=== PATIENT | female | born 1930 | race Caucasian/White ===

== ENCOUNTER 2017-03-29 23:01 | Emergency (ER) | payer MEDICARE, BC, OTHER ==
[~2017-03-29] VITALS: Ht 160 cm; Wt 56.0 kg
[2017-03-29 23:20] VITALS: BP 133/71; PULSE 90; RESP 22; TEMP 98; O2SAT 92
[2017-03-29] MEDS ORDERED: LEVA250T14 PO (23:20)
[2017-03-29] MEDS ORDERED: MULTTAB67 PO (23:20)
[2017-03-29] MEDS ORDERED: MUCI30TA2 PO (23:20)
[2017-03-29] MEDS ORDERED: CALC1TAB42 PO (23:20)
[2017-03-29] MEDS ORDERED: FLUT1SPR5 EACH NARE (23:20)
[2017-03-29] MEDS ORDERED: MEMA1TAB PO (23:20)
[2017-03-29] MEDS ORDERED: ARIC10TA2 PO (23:20)
--- NOTE | 2017-03-29 23:26 | PD ---
HPI Chief Complaint: Fall Time Seen by Provider: 23:06 Travel History International Travel<30 days: No Contact w/Intl Traveler<30days: No Traveled to known affect area: No History of Present Illness HPI PATIENT WAS S/P [facility] PER [place] REPORT, EMS CALLED FOR EVAL, PRIOR TO TRANSFER [place] VITALS SHOWED LOW GRADE FEVER 100.3 AND A RECENT H/O RUNNY NOSE AND COUGH PFSH Past Medical History Alzheimer's Disease: Yes Arthritis: Yes (osteo) Anxiety: Yes Tetanus Vaccination: Unknown : 2 Para: 1 Miscarriage: 1 Past Surgical History Hysterectomy: Yes Social History Alcohol Use: No Tobacco Use: No Substance Use: No Allergies-Medications (Allergen,Severity, Reaction): Coded Allergies: aspirin (Verified Allergy, Unknown, 03/29/17) meperidine (Verified Allergy, Unknown, 03/29/17) penicillin G (Verified Allergy, Unknown, 03/29/17) tetracycline (Verified Allergy, Unknown, 03/29/17) Reported Meds & Prescriptions Reported Meds & Active Scripts Active Reported Aricept (Donepezil HCl) 10 Mg Tablet 10 Mg PO HS Levaquin (Levofloxacin) 250 Mg Tablet 250 Mg PO DAILY Flonase Nasal [place] (Fluticasone Nasal [place]) 50 Mcg/Act [place] 50 Mcg EACH NARE BID Calcium 500+D (Calcium Carbonate-Cholecalciferol) 500-200 Mg-Unit Tab 1 Tab PO BID Mucinex DM (Dextromethorphan-Guaifenesin) 30-600 Mg Tab 1 Tab PO BID PRN Memantine 5 Mg Tab 5 Mg PO DAILY Multiple Vitamin 1 Tab 1 Tab PO DAILY Review of Systems ROS Limitations: Poor Historian Except as stated in HPI: all other systems reviewed are Neg Skin: Positive Other (CUT TO SKIN ON FACE) Physical Exam Exam Limitations: Poor Historian Narrative GENERAL: SKIN: Warm and dry. 3CM LACERATION TO LEFT SABIANIST AREA, NO PULSATILE BLEEDING, NOCREPTUS HEAD: Atraumatic. Normocephalic. EYES: Pupils equal and round. No scleral icterus. No injection or drainage. ENT: No nasal bleeding or discharge. Mucous membranes pink and moist. NO HEMOTYMPANUM NECK: Trachea midline. No JVD. "ALL OF IT HURTS" HOWEVER DID NOT APPEAR TO WINCE WHEN PALPATING DOWN MIDLINE OF ENTIRE BACK CARDIOVASCULAR: Regular rate and rhythm. RESPIRATORY: No accessory muscle use. Clear to auscultation. Breath sounds equal bilaterally. GASTROINTESTINAL: Abdomen soft, non-tender, nondistended. Hepatic and splenic margins not palpable. MUSCULOSKELETAL: Extremities without clubbing, cyanosis, or edema. No obvious deformities. NEUROLOGICAL: Awake and alert BUT SOMEWHAT FORGETFUL. No obvious cranial nerve deficits. Motor grossly within normal limits. Five out of 5 muscle strength in the arms and legs. Normal speech. PSYCHIATRIC: Appropriate mood and affect; insight and judgment normal. Data Data Last Documented VS Vital Signs Date Time Temp Pulse Resp B/P Pulse Ox O2 Delivery O2 Flow Rate FiO2 03/30/17 02:07 93 16 138/65 98 Nasal Cannula 2 03/29/17 23:20 98.0 Orders Ammonia (03/29/17 23:17) Complete Blood Count With Diff (03/29/17 23:17) Comprehensive Metabolic Panel (03/29/17 23:17) Prothrombin Time / Inr (Pt) (03/29/17 23:17) Act Partial Throm Time (Ptt) (03/29/17 23:17) Troponin I (03/29/17 23:17) Urinalysis - C+S If Indicated (03/29/17 23:17) Lactic Acid Sepsis Protocol (03/29/17 23:17) Chest, Single Ap (03/29/17 23:17) Ct Brain W/O Iv Contrast(Rout) (03/29/17 23:17) Ecg Monitoring (03/29/17 23:17) Iv Access Insert/Monitor (03/29/17 23:17) Spine, Cervical Compl([id number]) (03/29/17 ) Spine, Lumbar Comp W/Obliq (03/29/17 ) Spine, Thoracic-Ap/Lat/Sw(3vw) (03/29/17 ) Influenzae A/B Antigen (03/29/17 23:26) Levofloxacin 500 Mg Premix Inj (Levaquin (03/30/17 01:15) Lorazepam Inj (Ativan Inj) (03/30/17 01:30) Labs Laboratory Tests Test 03/29/17 03/29/17 23:20 23:22 White Blood Count 8.6 TH/MM3 Red Blood Count 4.41 MIL/MM3 Hemoglobin 12.7 GM/DL Hematocrit 38.2 % Mean Corpuscular Volume 86.6 FL Mean Corpuscular Hemoglobin 28.9 PG Mean Corpuscular Hemoglobin 33.4 % Concent Red Cell Distribution Width 13.7 % Platelet Count 282 TH/MM3 Mean Platelet Volume 7.9 FL Neutrophils (%) (Auto) 81.7 % Lymphocytes (%) (Auto) 11.0 % Monocytes (%) (Auto) 6.8 % Eosinophils (%) (Auto) 0.2 % Basophils (%) (Auto) 0.3 % Neutrophils # (Auto) 7.0 TH/MM3 Lymphocytes # (Auto) 0.9 TH/MM3 Monocytes # (Auto) 0.6 TH/MM3 Eosinophils # (Auto) 0.0 TH/MM3 Basophils # (Auto) 0.0 TH/MM3 CBC Comment DIFF FINAL Differential Comment Prothrombin Time 10.2 SEC Prothromb Time International 0.9 RATIO Ratio Activated Partial 26.8 SEC Thromboplast Time Sodium Level 140 MEQ/L Potassium Level 3.8 MEQ/L Chloride Level 106 MEQ/L Carbon Dioxide Level 29.1 MEQ/L Anion Gap 5 MEQ/L Blood Urea Nitrogen 20 MG/DL Creatinine 0.79 MG/DL Estimat Glomerular Filtration 69 ML/MIN Rate Random Glucose 109 MG/DL Calcium Level 9.1 MG/DL Total Bilirubin 0.7 MG/DL Aspartate Amino Transf 16 U/L (AST/SGOT) Alanine Aminotransferase 16 U/L (ALT/SGPT) Alkaline Phosphatase 93 U/L Troponin I LESS THAN 0.02 NG/ML Total Protein 7.1 GM/DL Albumin 3.3 GM/DL Lactic Acid Level 0.9 mmol/L Ammonia 15 MCMOL/L MDM Medical Decision Making Medical Screen Exam Complete: Yes Emergency Medical Condition: Yes Medical Record Reviewed: Yes Differential Diagnosis ICH V SEPSIS V ANEMIA V DEHYDRATION V BACK (FX, DISLOCATION, SUBLUXATION) Narrative Course THUS FAR CT HEAD SHOWED NO SKULL FX NOR ANY ICH. XRAY OF SPINE DID NOT SHOW ACUTE DISLOCATION/FX/SUBLUXATION. CURRENTLY NEG FLU, NO ELEV WBC, NO ANEMIA, NO E/O DEHYDRATION. ONLY MILD NEUTROPHILIA NOTED. NL LACTIC ACID Procedures Procedure Narrative LACERATION LOCATION: [LEFT SABIANIST REGION-] LENGTH: [3CM] NUMBER OF STITCHES/LORRAINE: [ZERO/DERMABOND] REPAIR: The area of the laceration was prepped with Betadine and sterilely draped. The laceration was infiltrated with [N/A]. The wound was copiously irrigated and explored without evidence of foreign body, tendon injury or neurovascular injury. The wound was closed using [DERMABOND]. This was a [ SINGLE] layer repair. A sterile dressing was applied. The patient was advised to keep the dressing clean and dry. Patient tolerated the procedure well. Diagnosis Primary Impression: FACIAL LACERATION S/P DERMABOND REPAIR Additional Impression: PNEUMONIA (WITHOUT HYPOXEMIA) Disposition: 03 DISCHARGE TO SNF Condition: Stable Oneil Saunders MD Mar 29, 2017 23:26
[2017-03-29 23:41] LABS: BASOPHIL % 0.3 % (0.0-2.0); EOSINOPHIL % 0.2 % (0.0-4.0); HEMATOCRIT 38.2 % (35.0-46.0); HEMO FLAGS DIFF FINAL; LYMPHOCYTE # 0.9 TH/MM3 (1.0-4.8); MEAN CELL VOLUME 86.6 FL (80.0-100.0); MEAN CORPUSCULAR HEMOGLOBIN 28.9 PG (27.0-34.0); MEAN CORPUSCULAR HGB CONC 33.4 % (32.0-36.0); MONO % 6.8 % (0.0-8.0); NEUT % 81.7 % (16.0-70.0); PLATELET COUNT 282 TH/MM3 (150-450); RED BLOOD COUNT 4.41 MIL/MM3 (4.00-5.30); RED CELL DISTRIBUTION WIDTH 13.7 % (11.6-17.2); WHITE BLOOD COUNT 8.6 TH/MM3 (4.0-11.0)
[2017-03-29 23:53] LABS: APTT (PATIENT) 26.8 SEC (24.3-30.1); INTERNATIONAL NORMALIZED RATIO 0.9 RATIO; PROTHROMBIN TIME - PATIENT 10.2 SEC (9.8-11.6)
[2017-03-30 00:13] LABS: ANION GAP 5 MEQ/L (5-15); AST (GOT) 16 U/L (15-37); BICARBONATE 29.1 MEQ/L (21.0-32.0); BLOOD UREA NITROGEN 20 MG/DL (7-18); CHLORIDE 106 MEQ/L (98-107); GLOMERULAR FILTRATION RATE 69 ML/MIN (>89); POTASSIUM 3.8 MEQ/L (3.5-5.1); SODIUM (NA) 140 MEQ/L (136-145)
[2017-03-30 00:14] LABS: ALT (GPT) 16 U/L (10-53)
[2017-03-30 00:18] LABS: ALKALINE PHOSPHATASE 93 U/L (45-117); TOTAL BILIRUBIN ADULT 0.7 MG/DL (0.2-1.0)
--- NOTE | 2017-03-30 00:38 | RADRPT ---
EXAM DATE/TIME: 03/30/2017 00:03 [facility] COMPARISON: No previous studies available for comparison. INDICATIONS : Fall. MEDICAL HISTORY : None. SURGICAL HISTORY : None. ENCOUNTER: Initial ACUITY: 1 day PAIN SCORE: 0/10 LOCATION: Bilateral chest FINDINGS: A single view of the chest demonstrates the lungs to be symmetrically aerated without evidence of mas s or effusion. Questionable patchy infiltrate right upper and left lower lung. No evidence of pneum othorax. The cardiomediastinal contours are unremarkable. Diffuse osteopenia. Vertebroplasty cemen t in the lower thoracic region. CONCLUSION: 1. No evidence of pneumothorax. 2. Patchy consolidative opacities in the right upper and left lower lung; recommend serial films. Hi Tubbs MD on March 30, 2017 at 0:35 Board Certified Radiologist. This report was verified electronically.
--- NOTE | 2017-03-30 00:42 | RADRPT ---
EXAM DATE/TIME: 03/30/2017 00:03 [facility] COMPARISON: No previous studies available for comparison. INDICATIONS : Fall. MEDICAL HISTORY : None. SURGICAL HISTORY : None. ENCOUNTER: Initial ACUITY: 1 day PAIN SCORE: 0/10 LOCATION: Bilateral c spine FINDINGS: Diffuse osteopenia. There is maintenance of alignment of the vertebral bodies down to level of C7. Vertebral body height maintained. The shoulders superimpose upon the cervical spine in lateral proje ction up to level of C2. The posterior arch of C1 is not identified on these views. The atlantoaxia l articulation appears to be grossly intact. Oblique views were performed and demonstrate moderate s everity bony neural foraminal stenosis from C3-C7 bilaterally. CONCLUSION: Osteopenia. No evidence of compression of further spondylolisthesis. Incomplete evaluation of the c ervical spine due to high riding shoulders superimposed upon the cervical spine. The posterior arch of C1 is not identified. CT may be considered for further evaluation given the technical limitations of this exam. Hi Tubbs MD on March 30, 2017 at 0:38 Board Certified Radiologist. This report was verified electronically.
--- NOTE | 2017-03-30 00:43 | RADRPT ---
EXAM DATE/TIME: 03/30/2017 00:05 [facility] COMPARISON: No previous studies available for comparison. INDICATIONS : Fall. MEDICAL HISTORY : None. SURGICAL HISTORY : None. ENCOUNTER: Initial ACUITY: 1 day PAIN SCORE: 0/10 LOCATION: Bilateral T-spine FINDINGS: Vertebroplasty cement at T12 with almost complete loss of height of the anterior one half of the vert ebral body. There is bridging paravertebral ossification at T11-12 bilaterally. Diffuse osteopenia. Pedicles are seen at the other levels. Minimal curvature of the upper thoracic spine convex toward s the left. CONCLUSION: 1. No evidence of acute compression deformity. 2. Prior vertebroplasty at T12. Hi Tubbs MD on March 30, 2017 at 0:41 Board Certified Radiologist. This report was verified electronically.
--- NOTE | 2017-03-30 00:44 | RADRPT ---
EXAM DATE/TIME: 03/30/2017 00:06 [facility] COMPARISON: No previous studies available for comparison. INDICATIONS : Fall. MEDICAL HISTORY : None. SURGICAL HISTORY : None. ENCOUNTER: Initial ACUITY: 1 day PAIN SCORE: 0/10 LOCATION: Bilateral L-spine FINDINGS: Diffuse osteopenia. Pedicles are seen at all lumbar levels. Vertebral body height is maintained. M inor degenerative changes the posterior elements L4-S1 without evidence of pars defect. Vascular eladia cification in the aorta and iliac vessels. Vertebroplasty cement at the T12 level. CONCLUSION: Osteopenia. No evidence of compression deformity or spondylolisthesis in the lumbar spine. Hi Tubbs MD on March 30, 2017 at 0:42 Board Certified Radiologist. This report was verified electronically.
[2017-03-30 00:47] VITALS: BP 132/68; PULSE 85; RESP 16; O2SAT 97
--- NOTE | 2017-03-30 00:48 | RADRPT ---
EXAM DATE/TIME: 03/30/2017 00:25 [facility] COMPARISON: No previous studies available for comparison. INDICATIONS : Trauma, fall. Contusion to left supraorbital region. RADIATION DOSE: 30.71 CTDIvol (mGy) MEDICAL HISTORY : None SURGICAL HISTORY : Hysterectomy. ENCOUNTER: Initial ACUITY: 1 day PAIN SCALE: 6/10 LOCATION: cranial TECHNIQUE: Multiple contiguous axial images were obtained of the head. Using automated exposure control and adj ustment of the mA and/or kV according to patient size, radiation dose was kept as low as reasonably a chievable to obtain optimal diagnostic quality images. DICOM format image data is available electro nically for review and comparison. FINDINGS: CEREBRUM: The ventricles, sulci, and basal cisterns are prominent characteristic of moderate severity central c ortical atrophy. There is also decreased attenuation in the supratentorial white matter.. No eviden ce of midline shift, mass lesion, hemorrhage or acute infarction. No extra-axial fluid collections a re seen. POSTERIOR FOSSA: The cerebellum and brainstem are intact. The 4th ventricle is midline. The cerebellopontine angle i s unremarkable. EXTRACRANIAL: The visualized portion of the orbits is intact. SKULL: The calvaria is intact. No evidence of skull fracture. CONCLUSION: 1. Moderate severity ischemic atrophy. 2. No acute findings of the brain. Hi Tubbs MD on March 30, 2017 at 0:45 Board Certified Radiologist. This report was verified electronically.
[2017-03-30] MEDS ORDERED: LEVOFLOXACIN 500 MG PREMIX INJ 100 ML IV ONE (01:15)
[2017-03-30] MEDS ORDERED: LORazepam 2 MG/ML VIAL IV PUSH ONE (01:30)
[2017-03-30 02:07] VITALS: BP 138/65; PULSE 93; RESP 16; O2SAT 98
[2017-03-30 03:06] LABS: BLOOD, URINE NEG (NEG); COMMENT (UR) CATH-CULTURE IND; CULTURE IF INDICATED CATH CULTURE IND; GLUCOSE,URINE NEG (NEG); HYALINE CAST, URINE 2 /lpf (RARE); KETONE, URINE 40 mg/dL (NEG); MUCUS URINE FEW /lpf (OCC); NITRITE,URINE NEG (NEG); PH, URINE 6.5 (5.0-8.5); RENAL EPITHELIAL CELLS 1 /hpf; SQUAMOUS EPITHELIAL CELL URINE 1 /hpf (0-5); TRANSITIONAL EPI CELLS, URINE <1 /hpf; URINE COLOR YELLOW (YELLW/STRAW)
== END 2017-03-30 07:31 ==
LOC: NEPC 23:01 → NEDAMB 03-30 07:31
DX: S01.81XA Laceration without foreign body of other part of head, initial encounter (principal); W19.XXXA Unspecified fall, initial encounter; J18.9 Pneumonia, unspecified organism; G30.9 Alzheimer's disease, unspecified; F02.80 Dementia in other diseases classified elsewhere, unspecified severity, without behavioral disturbance, psychotic disturbance, mood disturbance, and anxiety; M19.90 Unspecified osteoarthritis, unspecified site; R82.90 Unspecified abnormal findings in urine
CPT/HCPCS: 12013; 70450; 71010; 72050; 72072; 72110; 80053; 81001; 82140; 83605; 84484; 85025; 85610; 85730; 87086; 87804; 96365; 96375; 99285; J1956; J2060